=== PATIENT | female | born 1965 | race American Indian/Alaskan Native ===

== ENCOUNTER 2018-12-30 14:44 | Emergency (ER) | payer OTHER ==
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
[2018-12-30 15:35] VITALS: BP 120/81
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
== END 2018-12-30 19:02 | disposition home or self-care (01) ==
LOC: ED 14:44
DX: S83.91XA Sprain of unspecified site of right knee, initial encounter (principal); X58.XXXA Exposure to other specified factors, initial encounter; Y93.89 Activity, other specified; Y92.89 Other specified places as the place of occurrence of the external cause; Y99.8 Other external cause status

== ENCOUNTER 2021-12-31 17:31 | Emergency (ER) | payer SELFPAY ==
[2021-12-31] MEDS ORDERED: ASPIRIN 325 MG TAB PO ONE (17:49)
--- NOTE | 2021-12-31 18:25 | XRay Report ---
CHEST 2 VIEWS INDICATION / CLINICAL INFORMATION: chest pain. COMPARISON: None available. FINDINGS: SUPPORT DEVICES: None. HEART / MEDIASTINUM: No significant abnormality. LUNGS / PLEURA: No significant pulmonary or pleural abnormality. No pneumothorax. ADDITIONAL FINDINGS: No significant additional findings. IMPRESSION: 1. No acute findings. Signer Name: Edi Stevens MD Signed: 12/31/2021 6:21 PM Workstation Name: [employer]
[2021-12-31 18:26] LABS: Basophils # (Auto) 0.1 K/mm3 (0.0-0.1); Basophils % (Auto) 1.8 % (0.0-1.8); Eosinophils # (Auto) 0.2 K/mm3 (0.0-0.4); Hematocrit 37.5 % (30.3-42.9); Hemoglobin 12.3 gm/dl (10.1-14.3); Lymphocytes % (Auto) 27.4 % (13.4-35.0); Mean Corpuscular HGB Conc 33 % (30-34); Mean Corpuscular Volume 91 fl (79-97); Monocytes # (Auto) 0.4 K/mm3 (0.0-0.8); Monocytes % (Auto) 5.1 % (0.0-7.3); Platelet Count 190 K/mm3 (140-440); Red Blood Count 4.11 M/mm3 (3.65-5.03)
[2021-12-31 18:39] LABS: Alanine Aminotransferase 17 units/L (7-56); Blood Urea Nitrogen 13 mg/dL (7-17); Calcium 9.1 mg/dL (8.4-10.2); Hemolysis Index 9
[2021-12-31 18:40] LABS: BUN/Creatinine Ratio 19
[2022-01-01] MEDS ORDERED: ASPIRIN 325 MG TAB PO ONE (03:32)
--- NOTE | 2022-01-01 07:35 | Emergency Department Report ---
ED Chest Pain HPI - General Chief Complaint: Chest Pain Stated Complaint: CHEST PAIN Time Seen by Provider: 01/01/22 07:12 Source: patient Mode of arrival: Ambulatory Limitations: No Limitations - Related Data Previous Rx's Medication Instructions Recorded Last Taken Type HYDROcodone/APAP 5-325 [Milton 1 - 2 each PO Q6HR PRN #14 tablet 12/30/18 Unknown Rx 5/325] Ibuprofen [Motrin 800 MG tab] 800 mg PO Q8HR PRN #20 tablet 12/30/18 Unknown Rx Allergies Allergy/AdvReac Type Severity Reaction Status Date / Time iodine Allergy Unknown Verified 12/30/18 14:50 Sulfa (Sulfonamide Allergy Unknown Verified 12/30/18 14:50 Antibiotics) Heart Score - HEART Score History: Moderately suspicious EKG: Normal Age: 45-65 Risk factors: 1-2 risk factors Troponin: < normal limit HEART Score: 3 - EKG Read Time Time EKG Completed: 17:54 EKG Read Time: 17:55 - Critical Actions Critical Actions: 0-3 pts:0.9-1.7%risk of adverse cardiac event.Candidate for discharge ED Review of Systems ROS: Stated complaint: CHEST PAIN Other details as noted in HPI ED Past Medical Hx - Surgical History Additional Surgical History: c sections, - Social History Smoking Status: Never Smoker Substance Use Type: None - Medications Home Medications: Home Medications Medication Instructions Recorded Confirmed Last Taken Type HYDROcodone/APAP 5-325 [Milton 1 - 2 each PO Q6HR PRN #14 tablet 12/30/18 Unknown Rx 5/325] Ibuprofen [Motrin 800 MG tab] 800 mg PO Q8HR PRN #20 tablet 12/30/18 Unknown Rx ED Physical Exam - General Limitations: No Limitations ED Course Vital Signs 12/31/21 17:44 Temperature 98.8 F Pulse Rate 70 Respiratory 16 Rate Blood Pressure 126/47 [Left] O2 Sat by Pulse 95 Oximetry ED Medical Decision Making - Lab Data Result diagrams: 12/31/21 18:08 12/31/21 18:08 Critical care attestation.: If time is entered above; I have spent that time in minutes in the direct care of this critically ill patient, excluding procedure time. ED Disposition Clinical Impression: Chest pain Qualifiers: Chest pain type: unspecified Qualified Code(s): R07.9 - Chest pain, unspecified Disposition: 01 HOME / SELF CARE / HOMELESS Is pt being admited?: No Does the pt Need Aspirin: No Condition: Stable Instructions: Nonspecific Chest Pain, Adult, [id number] Additional Instructions: Follow-up with your infant caregiver as planned. Return to the emergency department as needed. Referrals: SHARITA CAICEDO MD [Staff Physician] - 3-5 Days Time of Disposition: 07:37
[2022-01-01 07:42] VITALS: BP 130/70
--- NOTE | 2022-01-01 11:13 | Electrocardiograph Report ---
[facility] Test Date: 2021-12-31 Test Time: 17:54:07 Pat Name: ALONDRA SHETH Department: Room: Gender: F [employer]: ANJALI : 1965 Requested By: ED DOC Order Number: [id number] Reading MD: Chuy Gray Measurements Intervals [place] Rate: 71 P: 51 MN: 164 QRS: -55 QRSD: 93 T: 48 QT: 388 QTc: 421 Interpretive Statements Sinus rhythm Left anterior fascicular block No previous ECG available for comparison Electronically Signed On 01-01-2022 11:12:38 EDT by Chuy Gray
== END 2022-01-01 07:42 | disposition home or self-care (01) ==
LOC: ED 17:31
DX: R07.9 Chest pain, unspecified (principal); Z88.1 Allergy status to other antibiotic agents; Z91.09 Other allergy status, other than to drugs and biological substances
CPT/HCPCS: 36415; 71046; 80053; 84484; 85025; 93005; 99284